=== PATIENT | female | born 1940 | race Caucasian/White ===

== ENCOUNTER 2020-11-03 12:38 | Outpatient (CLI) | payer MEDICARE, OTHER | END 2020-11-03 12:39 | disposition home or self-care (01) | LOC: CSHCT 12:38 | PROVIDERS: ATTEND Internal Medicine Critical Care Medicine | DX: J98.6 Disorders of diaphragm (principal); C34.12 Malignant neoplasm of upper lobe, left bronchus or lung; C38.3 Malignant neoplasm of mediastinum, part unspecified; J98.4 Other disorders of lung | CPT/HCPCS: 71260; 82565 ==

== ENCOUNTER 2021-05-11 13:39 | Outpatient (CLI) | payer MEDICARE, OTHER | END 2021-05-11 13:40 | disposition home or self-care (01) | LOC: CSHMRI 13:39 | PROVIDERS: ATTEND Radiology Radiation Oncology | DX: C34.90 Malignant neoplasm of unspecified part of unspecified bronchus or lung (principal); Z92.21 Personal history of antineoplastic chemotherapy | CPT/HCPCS: 70553 ==

== ENCOUNTER 2021-08-18 10:10 | Outpatient (CLI) | payer MEDICARE, OTHER | END 2021-08-18 10:11 | disposition home or self-care (01) | LOC: CSHMRI 10:10 | PROVIDERS: ATTEND Radiology Radiation Oncology | DX: C34.90 Malignant neoplasm of unspecified part of unspecified bronchus or lung (principal); R90.82 White matter disease, unspecified; Z86.73 Personal history of transient ischemic attack (TIA), and cerebral infarction without residual deficits | CPT/HCPCS: 70553; 82565 ==

== ENCOUNTER 2021-11-10 13:48 | Outpatient (CLI) | payer MEDICARE, OTHER | END 2021-11-10 13:49 | disposition home or self-care (01) | LOC: CSHULT 13:48 | PROVIDERS: ATTEND Student in an Organized Health Care Education/Training Program | DX: R94.4 Abnormal results of kidney function studies (principal); N28.1 Cyst of kidney, acquired; N28.89 Other specified disorders of kidney and ureter | CPT/HCPCS: 76770 ==

== ENCOUNTER 2021-11-22 10:07 | Outpatient (CLI) | payer MEDICARE, OTHER | END 2021-11-22 10:08 | disposition home or self-care (01) | LOC: CSHMRI 10:07 | PROVIDERS: ATTEND Radiology Radiation Oncology | DX: C34.90 Malignant neoplasm of unspecified part of unspecified bronchus or lung (principal); G31.9 Degenerative disease of nervous system, unspecified; I67.82 Cerebral ischemia | CPT/HCPCS: 70553; 82565 ==

== ENCOUNTER 2022-01-12 13:49 | Outpatient (CLI) | payer MEDICARE, OTHER ==
[2022-01-12] MEDS ORDERED: Iopamidol 370 76% 100 ML VIAL ONE (14:39)
== END 2022-01-12 13:50 | disposition home or self-care (01) ==
LOC: CSHCT 13:49
PROVIDERS: ATTEND Internal Medicine Hematology & Oncology
DX: C34.12 Malignant neoplasm of upper lobe, left bronchus or lung (principal); R91.1 Solitary pulmonary nodule; R91.8 Other nonspecific abnormal finding of lung field; J90 Pleural effusion, not elsewhere classified
CPT/HCPCS: 71260; Q9967

== ENCOUNTER 2022-03-19 07:55 | Outpatient (CLI) | payer MEDICARE, OTHER ==
[2022-03-19] MEDS ORDERED: Iopamidol 370 76% 100 ML VIAL ONE (14:44)
== END 2022-03-19 07:56 | disposition home or self-care (01) ==
LOC: CSHCT 07:55
PROVIDERS: ATTEND Specialist
DX: I71.4 Abdominal aortic aneurysm, without rupture (principal); I71.02 Dissection of abdominal aorta; J90 Pleural effusion, not elsewhere classified; N28.1 Cyst of kidney, acquired; K57.90 Diverticulosis of intestine, part unspecified, without perforation or abscess without bleeding; I70.1 Atherosclerosis of renal artery
CPT/HCPCS: 74174; Q9967

== ENCOUNTER 2022-04-14 22:36 | Inpatient (IN) | payer MEDICARE, OTHER ==
[2022-04-14 23:25] LABS: Mean Corpuscular Hemoglobin 30.2 pg (27.0-33.0); Mean Corpuscular Volume 91.6 fl (81.6-98.3); Mean Platelet Volume 9.7 fl (7.4-10.4); Platelet Count 189 10x3/uL (150-450); RBC Distribution Width 16.4 % (11.5-14.5); Red Blood Cell (RBC) Count 2.98 10x6/uL (3.90-5.03); White Blood Cell (WBC) Count 25.9 10x3/uL (3.5-10.5)
[2022-04-14 23:35] LABS: ALT (SGPT) 12 U/L (8-55); AST (SGOT) 20 U/L (5-34); Albumin 3.8 g/dL (3.4-4.8); Alkaline Phosphatase 85 U/L (40-110); Anion Gap 16 mmol/L (10-20); BUN (Urea Nitrogen) 30 mg/dL (9.8-20.1); Bilirubin, Total 0.2 mg/dL (0.2-1.2); Calc. Creatinine Clearance 0 mL/min (70-130); Calcium 8.6 mg/dL (7.8-10.44); Carbon Dioxide 21 mmol/L (23-31); Chloride 95 mmol/L (98-107); Estimated GFR 23; Globulin 3.1 g/dL (2.4-3.5); Glucose 122 mg/dL (83-110); Potassium 4.1 mmol/L (3.5-5.1); Protein, Total 6.9 g/dL (5.8-8.1); Sodium 128 mmol/L (136-145)
[2022-04-14 23:53] LABS: MDiff Complete? YES
[2022-04-14 23:56] LABS: CKMB 3.8 ng/mL (0-6.6)
[2022-04-15 02:40] LABS: Band 5 % (5-11); Lymphocytes 4 % (21-51); Monocytes 5 % (0-10); Neutrophil 86 % (42-75)
[2022-04-15 02:43] LABS: Anisocytosis SLIGHT = 6-15 cells (100X) (0-5/hpf); Hypochromia SLIGHT = 6-15 cells (100X) (0-5/hpf); Macrocytosis SLIGHT = 6-15 cells (100X) (0-5/hpf); Platelet Morphology Comment Appears Adequate
[2022-04-15] MEDS ORDERED: Calcium Carbonate 500 MG ChewTAB PO PRN (03:17)
[2022-04-15] MEDS ORDERED: Acetaminophen 325 MG TAB PO PRN (03:17)
[2022-04-15] MEDS ORDERED: Senokot S 8.6-50 MG TAB PO PRN (03:17)
[2022-04-15] MEDS ORDERED: Guaifenesin DM 100-10/5 ML UDCUP PO PRN (03:17)
[2022-04-15] MEDS ORDERED: Ondansetron PF 4 MG/2 ML Vial IVP PRN (03:17)
[2022-04-15] MEDS ORDERED: HYDROcodone/Acetaminophen 5/325 mg Tablet PO PRN (03:17)
[2022-04-15] MEDS ORDERED: Enoxaparin Sodium 80 MG/0.8 ML SYRINGE ONE (03:19)
[2022-04-15] MEDS ORDERED: Furosemide 40 MG/4 ML VIAL ONE ×2 (03:19→10:25)
[2022-04-15] MEDS ORDERED: Nitroglycerin 2% Ointment 1 INCH/1 GM Packet TOP SCH (03:30)
[2022-04-15] MEDS ORDERED: Piperacillin/Tazobactam 3.375 GM in Sodium Chloride 0.9% 100 ML IVPB SCH (03:45)
[2022-04-15] MEDS ORDERED: methylPREDNISolone Sod Succ/PF 125 MG/2 ML VIAL IVP SCH (03:45)
[2022-04-15] MEDS ORDERED: methylPREDNISolone Sod Succ/PF 125 MG/2 ML VIAL ONE (03:46)
[2022-04-15] MEDS ORDERED: Nitroglycerin 2% Ointment 1 INCH/1 GM Packet ONE (03:46)
[2022-04-15] MEDS ORDERED: Piperacillin/Tazobactam 3.375 GM VIAL ONE ×3 (03:47→20:46)
[2022-04-15 04:05] LABS: SARS-CoV-2 NAA Rapid Test Not Detected (NotDetected)
[2022-04-15 04:32] LABS: Anion Gap 15 mmol/L (10-20); BUN (Urea Nitrogen) 31 mg/dL (9.8-20.1); Calc. Creatinine Clearance 0 mL/min (70-130); Calcium 8.8 mg/dL (7.8-10.44); Carbon Dioxide 22 mmol/L (23-31); Chloride 94 mmol/L (98-107); Estimated GFR 26; Glucose 113 mg/dL (83-110); Potassium 4.1 mmol/L (3.5-5.1); Sodium 127 mmol/L (136-145)
[2022-04-15 04:50] LABS: #Basophils 0.1 10x3/uL (0.0-0.2); #Eosinphils 0.1 10x3/uL (0.0-0.5); #Monocytes 1.4 10x3/uL (0.0-1.1); #Neutrophils 20.1 10x3/uL (1.5-8.4); %Basophils 0.5 % (0.0-2.0); %Eosinophils 0.2 % (0.0-6.0); %Lymphocytes 5.6 % (18.0-47.0); %Monocytes 5.6 % (0.0-10.0); %Neutrophils 78.8 % (40.0-75.0); Hemoglobin 8.8 g/dL (12.0-15.5); Mean Corpuscular HGB CONC 33.1 g/dL (32.0-36.0); Mean Corpuscular Hemoglobin 30.2 pg (27.0-33.0); Mean Corpuscular Volume 91.4 fl (81.6-98.3); Mean Platelet Volume 9.7 fl (7.4-10.4); Platelet Count 196 10x3/uL (150-450); RBC Distribution Width 16.2 % (11.5-14.5); Red Blood Cell (RBC) Count 2.91 10x6/uL (3.90-5.03); White Blood Cell (WBC) Count 25.5 10x3/uL (3.5-10.5)
[2022-04-15 04:59] LABS: CKMB 3.2 ng/mL (0-6.6)
[2022-04-15 06:09] LABS: MDiff Complete? YES
[2022-04-15 06:12] LABS: Eosinophils 1 % (0-10); Lymphocytes 11 % (21-51); Monocytes 11 % (0-10); Neutrophil 77 % (42-75)
[2022-04-15 06:14] LABS: Anisocytosis SLIGHT = 6-15 cells (100X) (0-5/hpf); Hypochromia SLIGHT = 6-15 cells (100X) (0-5/hpf); Microcytosis SLIGHT = 6-15 cells (100X) (0-5/hpf); Platelet Morphology Comment Appears Adequate
[2022-04-15] MEDS: Levothyroxine Sodium 75 MCG TAB PO SCH (06:31)
[2022-04-15] MEDS ORDERED: APREMILAST 30 MG PO SCH (09:00)
[2022-04-15 09:36] LABS: CKMB 3.7 ng/mL (0-6.6)
[2022-04-15] MEDS ORDERED: Clopidogrel Bisulfate 75 MG TAB ONE (10:24)
[2022-04-15] MEDS ORDERED: Aspirin Chewable 81 MG TAB ONE (10:24)
[2022-04-15] MEDS ORDERED: Multivitamin W/ Minerals 1 TAB ONE (10:25)
[2022-04-15] MEDS ORDERED: Famotidine 20 MG TAB ONE (10:26)
[2022-04-15] MEDS: Carvedilol 6.25 MG TAB PO SCH ×2 (10:30→21:23)
[2022-04-15] MEDS: Furosemide 40 MG/4 ML VIAL SLOW IVP SCH (10:30)
[2022-04-15] MEDS: Clopidogrel Bisulfate 75 MG TAB PO SCH (10:30)
[2022-04-15] MEDS: Multivitamin W/ Minerals 1 TAB PO SCH (10:30)
[2022-04-15] MEDS: Famotidine 20 MG TAB PO SCH (10:30)
[2022-04-15] MEDS: Liothyronine Sodium 5 MCG TAB PO SCH (10:30)
[2022-04-15] MEDS: Aspirin 81 mg Enteric Coated Tablet PO SCH (10:30)
[2022-04-15] MEDS ORDERED: Mometasone/Formoterol 200/5 60 PUFF INH ONE (11:19)
[2022-04-15] MEDS: Mometasone/Formoterol 200/5 60 PUFF INH SCH ×2 (11:59→18:40)
[2022-04-15] MEDS: Piperacillin/Tazobactam 3.375 GM in Sodium Chloride 0.9% 100 ML IVPB SCH ×2 (12:54→21:24)
[2022-04-15] MEDS ORDERED: Amlodipine 10 MG TAB ONE (20:42)
[2022-04-15] MEDS ORDERED: Carvedilol 3.125 MG TAB ONE (20:43)
[2022-04-15] MEDS: Amlodipine 10 MG TAB PO SCH (21:23)
[2022-04-15] MEDS: Atorvastatin Calcium 10 MG TAB PO SCH (21:23)
[2022-04-16 01:34] LABS: Bilirubin Neg (Negative); Blood, Urine 25 (Negative); Clarity Clear (Clear); Glucose, Urine (Dipstick) Normal (Negative); Ketone, Urine Negative (Negative); Leukocyte 25 (Negative); Nitrite Negative (Negative); Protein, Urine (Dipstick) Negative (Neg-Trace); Urobilinogen Normal mg/dL (Less than 2)
[2022-04-16 02:09] LABS: Bacteria/HPF None Seen HPF (None Seen); RBC/HPF 0-3 HPF (0-3); Squamous Epithelial 0-3 HPF (0-3)
[2022-04-16] MEDS ORDERED: Enoxaparin Sodium 80 MG/0.8 ML SYRINGE SC SCH (04:00)
[2022-04-16] MEDS: Piperacillin/Tazobactam 3.375 GM in Sodium Chloride 0.9% 100 ML IVPB SCH ×3 (04:36→20:28)
[2022-04-16 04:56] LABS: Hemoglobin 8.5 g/dL (12.0-15.5); Mean Corpuscular HGB CONC 33.7 g/dL (32.0-36.0); Mean Corpuscular Hemoglobin 30.1 pg (27.0-33.0); Mean Corpuscular Volume 89.4 fl (81.6-98.3); Mean Platelet Volume 9.6 fl (7.4-10.4); Platelet Count 244 10x3/uL (150-450); RBC Distribution Width 16.1 % (11.5-14.5); Red Blood Cell (RBC) Count 2.82 10x6/uL (3.90-5.03); White Blood Cell (WBC) Count 27.4 10x3/uL (3.5-10.5)
[2022-04-16 05:14] LABS: ALT (SGPT) 10 U/L (8-55); AST (SGOT) 18 U/L (5-34); Albumin 3.5 g/dL (3.4-4.8); Alkaline Phosphatase 72 U/L (40-110); Anion Gap 13 mmol/L (10-20); BUN (Urea Nitrogen) 29 mg/dL (9.8-20.1); Bilirubin, Total 0.2 mg/dL (0.2-1.2); CK (CPK) 104 U/L (29-168); Calc. Creatinine Clearance 35 mL/min (70-130); Calcium 8.7 mg/dL (7.8-10.44); Carbon Dioxide 24 mmol/L (23-31); Chloride 95 mmol/L (98-107); Estimated GFR 36; Globulin 3.1 g/dL (2.4-3.5); Glucose 136 mg/dL (83-110); Magnesium 1.8 mg/dL (1.6-2.6); Potassium 3.9 mmol/L (3.5-5.1); Protein, Total 6.6 g/dL (5.8-8.1); Sodium 128 mmol/L (136-145)
[2022-04-16] MEDS: Levothyroxine Sodium 75 MCG TAB PO SCH (05:28)
[2022-04-16 05:31] LABS: MDiff Complete? YES
[2022-04-16 05:34] LABS: Band 15 % (5-11); Lymphocytes 3 % (21-51); Metamyelocyte 1 % (0-0); Monocytes 8 % (0-10); Myelocyte 2 % (0-0); Neutrophil 71 % (42-75); Platelet Morphology Comment Appears Adequate
[2022-04-16 05:35] LABS: RBC Morphology Normal
[2022-04-16] MEDS: Clopidogrel Bisulfate 75 MG TAB PO SCH (07:35)
[2022-04-16] MEDS: Multivitamin W/ Minerals 1 TAB PO SCH (07:35)
[2022-04-16] MEDS: Famotidine 20 MG TAB PO SCH (07:35)
[2022-04-16] MEDS: Carvedilol 6.25 MG TAB PO SCH ×2 (07:36→20:29)
[2022-04-16] MEDS: Furosemide 40 MG/4 ML VIAL SLOW IVP SCH ×2 (07:36→20:29)
[2022-04-16] MEDS: Aspirin 81 mg Enteric Coated Tablet PO SCH (07:46)
[2022-04-16] MEDS: Liothyronine Sodium 5 MCG TAB PO SCH (08:36)
[2022-04-16] MEDS ORDERED: Enoxaparin Sodium 30 MG/0.3 ML SYRINGE SC SCH (09:00)
[2022-04-16] MEDS ORDERED: FLU VACC QS2022-23(65YR UP)/PF 240 MCG/0.7 ML SYRINGE IM ONE (09:00)
[2022-04-16] MEDS: Mometasone/Formoterol 200/5 60 PUFF INH SCH ×2 (10:18→19:25)
[2022-04-16] MEDS: Atorvastatin Calcium 10 MG TAB PO SCH (20:29)
[2022-04-16] MEDS: Amlodipine 10 MG TAB PO SCH (20:29)
[2022-04-17 04:28] LABS: Hemoglobin 8.9 g/dL (12.0-15.5); Mean Corpuscular HGB CONC 33.3 g/dL (32.0-36.0); Mean Corpuscular Hemoglobin 29.9 pg (27.0-33.0); Mean Corpuscular Volume 89.6 fl (81.6-98.3); Mean Platelet Volume 9.4 fl (7.4-10.4); Platelet Count 288 10x3/uL (150-450); RBC Distribution Width 16.6 % (11.5-14.5); Red Blood Cell (RBC) Count 2.98 10x6/uL (3.90-5.03); White Blood Cell (WBC) Count 15.2 10x3/uL (3.5-10.5)
[2022-04-17 04:43] LABS: ALT (SGPT) 11 U/L (8-55); AST (SGOT) 16 U/L (5-34); Albumin 3.5 g/dL (3.4-4.8); Alkaline Phosphatase 67 U/L (40-110); Anion Gap 15 mmol/L (10-20); BUN (Urea Nitrogen) 23 mg/dL (9.8-20.1); Bilirubin, Total 0.3 mg/dL (0.2-1.2); Calc. Creatinine Clearance 50 mL/min (70-130); Calcium 8.6 mg/dL (7.8-10.44); Carbon Dioxide 28 mmol/L (23-31); Chloride 96 mmol/L (98-107); Estimated GFR 51; Globulin 3.1 g/dL (2.4-3.5); Glucose 97 mg/dL (83-110); Potassium 3.6 mmol/L (3.5-5.1); Protein, Total 6.6 g/dL (5.8-8.1); Sodium 135 mmol/L (136-145)
[2022-04-17 05:09] LABS: MDiff Complete? YES
[2022-04-17 05:13] LABS: Band 5 % (5-11); Eosinophils 1 % (0-10); Lymphocytes 11 % (21-51); Metamyelocyte 1 % (0-0); Monocytes 6 % (0-10); Neutrophil 75 % (42-75); Nucleated RBC 1 % (0); Reactive Lymphocytes 1 % (0-10)
[2022-04-17 05:14] LABS: Platelet Morphology Comment Appears Adequate; RBC Morphology Normal
[2022-04-17] MEDS: Piperacillin/Tazobactam 3.375 GM in Sodium Chloride 0.9% 100 ML IVPB SCH ×3 (05:28→20:03)
[2022-04-17] MEDS: Levothyroxine Sodium 75 MCG TAB PO SCH (05:28)
[2022-04-17 07:54] LABS: Magnesium 1.6 mg/dL (1.6-2.6)
[2022-04-17] MEDS ORDERED: Magnesium 2 GM/50 ML(in water) 2 GM in Premix Bag 1 BAG IVPB SCH (08:00)
[2022-04-17] MEDS ORDERED: Potassium Chloride 20 MEQ TAB PO SCH (08:00)
[2022-04-17] MEDS: Furosemide 40 MG/4 ML VIAL SLOW IVP SCH ×2 (08:12→20:03)
[2022-04-17] MEDS: Clopidogrel Bisulfate 75 MG TAB PO SCH (08:12)
[2022-04-17] MEDS: Liothyronine Sodium 5 MCG TAB PO SCH (08:13)
[2022-04-17] MEDS: Carvedilol 12.5 MG TAB PO SCH ×2 (08:13→17:06)
[2022-04-17] MEDS: Aspirin 81 mg Enteric Coated Tablet PO SCH (08:13)
[2022-04-17] MEDS: Famotidine 20 MG TAB PO SCH (08:13)
[2022-04-17] MEDS: Multivitamin W/ Minerals 1 TAB PO SCH (08:13)
[2022-04-17] MEDS ORDERED: Lidocaine 1% PF 5 ML VIAL ONE (09:33)
[2022-04-17] MEDS ORDERED: Sodium Bicarbonate 2.5 MEQ/5 ML VIAL ONE (09:33)
[2022-04-17] MEDS: Mometasone/Formoterol 200/5 60 PUFF INH SCH ×2 (10:40→19:05)
[2022-04-17] MEDS ORDERED: Piperacillin/Tazobactam 3.375 GM VIAL ONE ×3 (12:21→20:04)
[2022-04-17] MEDS: Atorvastatin Calcium 10 MG TAB PO SCH (20:03)
[2022-04-17] MEDS: Amlodipine 10 MG TAB PO SCH (20:03)
[2022-04-17] MEDS: Enoxaparin Sodium 40 MG/0.4 ML SYRINGE SC SCH (20:03)
[2022-04-17] MEDS ORDERED: Sodium Chloride 0.9% 100 ML ONE (20:04)
[2022-04-17] MEDS ORDERED: hydrALAZINE 20 MG/ML VIAL SLOW IVP SCH (21:00)
[2022-04-18 03:30] LABS: Hemoglobin 10.6 g/dL (12.0-15.5); Mean Corpuscular HGB CONC 33.5 g/dL (32.0-36.0); Mean Corpuscular Hemoglobin 30.1 pg (27.0-33.0); Mean Corpuscular Volume 89.8 fl (81.6-98.3); Platelet Count 373 10x3/uL (150-450); RBC Distribution Width 17.5 % (11.5-14.5); Red Blood Cell (RBC) Count 3.52 10x6/uL (3.90-5.03); White Blood Cell (WBC) Count 23.1 10x3/uL (3.5-10.5)
[2022-04-18 03:49] LABS: ALT (SGPT) 11 U/L (8-55); AST (SGOT) 14 U/L (5-34); Albumin 3.9 g/dL (3.4-4.8); Alkaline Phosphatase 72 U/L (40-110); Anion Gap 13 mmol/L (10-20); BUN (Urea Nitrogen) 17 mg/dL (9.8-20.1); Bilirubin, Total 0.4 mg/dL (0.2-1.2); Calc. Creatinine Clearance 55 mL/min (70-130); Calcium 9.5 mg/dL (7.8-10.44); Carbon Dioxide 35 mmol/L (23-31); Chloride 91 mmol/L (98-107); Estimated GFR 58; Globulin 3.3 g/dL (2.4-3.5); Glucose 129 mg/dL (83-110); MDiff Complete? YES; Magnesium 1.6 mg/dL (1.6-2.6); Potassium 3.4 mmol/L (3.5-5.1); Protein, Total 7.2 g/dL (5.8-8.1); Sodium 136 mmol/L (136-145)
[2022-04-18 03:52] LABS: Band 8 % (5-11); Lymphocytes 9 % (21-51); Metamyelocyte 1 % (0-0); Monocytes 7 % (0-10); Myelocyte 3 % (0-0); Neutrophil 71 % (42-75); Nucleated RBC 1 % (0); Reactive Lymphocytes 1 % (0-10)
[2022-04-18 03:53] LABS: Platelet Morphology Comment Appears Adequate; RBC Morphology Normal
[2022-04-18] MEDS ORDERED: Magnesium 2 GM/50 ML(in water) 2 GM in Premix Bag 1 BAG IVPB SCH ×2 (04:30→08:00)
[2022-04-18] MEDS ORDERED: Potassium Phosphate 30 MMOL in Sodium Chloride 0.9% 250 ML 250 ML IVPB SCH (04:45)
[2022-04-18] MEDS: Piperacillin/Tazobactam 3.375 GM in Sodium Chloride 0.9% 100 ML IVPB SCH ×3 (04:47→19:49)
[2022-04-18] MEDS: Levothyroxine Sodium 75 MCG TAB PO SCH (05:11)
[2022-04-18] MEDS: Mometasone/Formoterol 200/5 60 PUFF INH SCH ×2 (07:40→19:05)
[2022-04-18] MEDS: Liothyronine Sodium 5 MCG TAB PO SCH (08:12)
[2022-04-18] MEDS: Aspirin 81 mg Enteric Coated Tablet PO SCH (08:12)
[2022-04-18] MEDS: Clopidogrel Bisulfate 75 MG TAB PO SCH (08:12)
[2022-04-18] MEDS: Famotidine 20 MG TAB PO SCH (08:12)
[2022-04-18] MEDS: Multivitamin W/ Minerals 1 TAB PO SCH (08:12)
[2022-04-18 08:14] LABS: #Basophils 0.2 10x3/uL (0.0-0.2); #Eosinphils 0.1 10x3/uL (0.0-0.5); #Monocytes 2.8 10x3/uL (0.0-1.1); #Neutrophils 13.7 10x3/uL (1.5-8.4); %Basophils 0.8 % (0.0-2.0); %Eosinophils 0.3 % (0.0-6.0); %Lymphocytes 8.1 % (18.0-47.0); %Monocytes 14.3 % (0.0-10.0); Hemoglobin 9.9 g/dL (12.0-15.5); Mean Corpuscular HGB CONC 33.8 g/dL (32.0-36.0); Mean Corpuscular Hemoglobin 30.2 pg (27.0-33.0); Mean Corpuscular Volume 89.3 fl (81.6-98.3); Mean Platelet Volume 9.4 fl (7.4-10.4); Platelet Count 366 10x3/uL (150-450); RBC Distribution Width 17.2 % (11.5-14.5); Red Blood Cell (RBC) Count 3.28 10x6/uL (3.90-5.03); White Blood Cell (WBC) Count 19.3 10x3/uL (3.5-10.5)
[2022-04-18] MEDS: Carvedilol 25 MG TAB PO SCH ×2 (08:14→16:03)
[2022-04-18 08:15] LABS: Manual Diff?? YES
[2022-04-18 08:30] LABS: Band 7 % (5-11); Eosinophils 1 % (0-10); Lymphocytes 7 % (21-51); Monocytes 12 % (0-10); Myelocyte 2 % (0-0); Neutrophil 64 % (42-75); Nucleated RBC 1 % (0); Reactive Lymphocytes 4 % (0-10)
[2022-04-18] MEDS ORDERED: Furosemide 40 MG TAB PO SCH (08:30)
[2022-04-18 08:31] LABS: Anisocytosis SLIGHT = 6-15 cells (100X) (0-5/hpf); Platelet Morphology Comment Appears Adequate
[2022-04-18 08:32] LABS: Hypochromia SLIGHT = 6-15 cells (100X) (0-5/hpf); Macrocytosis SLIGHT = 6-15 cells (100X) (0-5/hpf); Microcytosis SLIGHT = 6-15 cells (100X) (0-5/hpf); Polychromasia SLIGHT = 2-3 cells (100X) (0-2/hpf); Target Cells SLIGHT = 2-5 cells (100X) (0-1/hpf)
[2022-04-18] MEDS: Amlodipine 10 MG TAB PO SCH (19:48)
[2022-04-18] MEDS: Atorvastatin Calcium 10 MG TAB PO SCH (19:48)
[2022-04-18] MEDS: Enoxaparin Sodium 40 MG/0.4 ML SYRINGE SC SCH (19:49)
[2022-04-19 04:52] LABS: Hemoglobin 9.8 g/dL (12.0-15.5); Mean Corpuscular HGB CONC 34.3 g/dL (32.0-36.0); Mean Corpuscular Hemoglobin 30.5 pg (27.0-33.0); Mean Corpuscular Volume 89.1 fl (81.6-98.3); Mean Platelet Volume 9.2 fl (7.4-10.4); Platelet Count 338 10x3/uL (150-450); RBC Distribution Width 17.2 % (11.5-14.5); Red Blood Cell (RBC) Count 3.21 10x6/uL (3.90-5.03); White Blood Cell (WBC) Count 15.6 10x3/uL (3.5-10.5)
[2022-04-19 05:01] LABS: ALT (SGPT) 11 U/L (8-55); AST (SGOT) 17 U/L (5-34); Albumin 3.5 g/dL (3.4-4.8); Alkaline Phosphatase 61 U/L (40-110); Anion Gap 12 mmol/L (10-20); BUN (Urea Nitrogen) 15 mg/dL (9.8-20.1); Bilirubin, Total 0.5 mg/dL (0.2-1.2); Calc. Creatinine Clearance 61 mL/min (70-130); Calcium 8.8 mg/dL (7.8-10.44); Carbon Dioxide 32 mmol/L (23-31); Chloride 90 mmol/L (98-107); Estimated GFR 67; Globulin 3.1 g/dL (2.4-3.5); Glucose 114 mg/dL (83-110); Potassium 3.4 mmol/L (3.5-5.1); Protein, Total 6.6 g/dL (5.8-8.1); Sodium 131 mmol/L (136-145)
[2022-04-19] MEDS: Piperacillin/Tazobactam 3.375 GM in Sodium Chloride 0.9% 100 ML IVPB SCH ×3 (05:35→22:06)
[2022-04-19] MEDS: Levothyroxine Sodium 75 MCG TAB PO SCH (05:35)
[2022-04-19 06:04] LABS: MDiff Complete? YES
[2022-04-19 06:40] LABS: Band 5 % (5-11); Lymphocytes 8 % (21-51); Metamyelocyte 2 % (0-0); Monocytes 20 % (0-10); Neutrophil 65 % (42-75)
[2022-04-19 06:41] LABS: Anisocytosis SLIGHT = 6-15 cells (100X) (0-5/hpf); Hypochromia SLIGHT = 6-15 cells (100X) (0-5/hpf); Macrocytosis SLIGHT = 6-15 cells (100X) (0-5/hpf); Microcytosis SLIGHT = 6-15 cells (100X) (0-5/hpf); Platelet Morphology Comment Appears Adequate
[2022-04-19] MEDS ORDERED: Furosemide 40 MG TAB PO SCH (07:30)
[2022-04-19] MEDS: Mometasone/Formoterol 200/5 60 PUFF INH SCH ×2 (08:10→20:45)
[2022-04-19] MEDS: Clopidogrel Bisulfate 75 MG TAB PO SCH (08:10)
[2022-04-19] MEDS: Multivitamin W/ Minerals 1 TAB PO SCH (08:10)
[2022-04-19] MEDS: Aspirin 81 mg Enteric Coated Tablet PO SCH (08:10)
[2022-04-19] MEDS: Liothyronine Sodium 5 MCG TAB PO SCH (08:10)
[2022-04-19] MEDS: Potassium Chloride 20 MEQ TAB PO SCH (08:10)
[2022-04-19] MEDS: Famotidine 20 MG TAB PO SCH (08:10)
[2022-04-19] MEDS: Carvedilol 25 MG TAB PO SCH ×2 (08:10→17:20)
[2022-04-19] MEDS: Furosemide 40 MG/4 ML VIAL SLOW IVP SCH (08:11)
[2022-04-19] MEDS ORDERED: Lisinopril 5 MG TAB PO SCH (09:00)
[2022-04-19] MEDS ORDERED: Electrolyte Replacement Protocol 1 EACH FS SCH (14:15)
[2022-04-19] MEDS ORDERED: Magnesium 2 GM/50 ML(in water) 2 GM in Premix Bag 1 BAG IVPB SCH (15:00)
[2022-04-19] MEDS ORDERED: Potassium Chloride 20 MEQ TAB PO SCH (15:00)
[2022-04-19] MEDS: Enoxaparin Sodium 40 MG/0.4 ML SYRINGE SC SCH (22:06)
[2022-04-19] MEDS: Atorvastatin Calcium 10 MG TAB PO SCH (22:07)
[2022-04-19] MEDS: Amlodipine 10 MG TAB PO SCH (22:07)
[2022-04-20 05:27] LABS: Hemoglobin 9.1 g/dL (12.0-15.5); Mean Corpuscular HGB CONC 33.2 g/dL (32.0-36.0); Mean Corpuscular Volume 90.4 fl (81.6-98.3); Mean Platelet Volume 8.9 fl (7.4-10.4); Platelet Count 320 10x3/uL (150-450); RBC Distribution Width 17.3 % (11.5-14.5); Red Blood Cell (RBC) Count 3.03 10x6/uL (3.90-5.03); White Blood Cell (WBC) Count 13.7 10x3/uL (3.5-10.5)
[2022-04-20 05:33] LABS: Phosphorus 3.1 mg/dL (2.3-4.7)
[2022-04-20 05:35] LABS: ALT (SGPT) 15 U/L (8-55); AST (SGOT) 16 U/L (5-34); Albumin 3.5 g/dL (3.4-4.8); Alkaline Phosphatase 59 U/L (40-110); Anion Gap 14 mmol/L (10-20); BUN (Urea Nitrogen) 14 mg/dL (9.8-20.1); Bilirubin, Total 0.4 mg/dL (0.2-1.2); Calc. Creatinine Clearance 60 mL/min (70-130); Carbon Dioxide 31 mmol/L (23-31); Chloride 96 mmol/L (98-107); Estimated GFR 68; Glucose 114 mg/dL (83-110); Magnesium 2.3 mg/dL (1.6-2.6); Potassium 4.5 mmol/L (3.5-5.1); Protein, Total 6.5 g/dL (5.8-8.1); Sodium 136 mmol/L (136-145)
[2022-04-20 06:14] LABS: MDiff Complete? YES
[2022-04-20 06:19] LABS: Eosinophils 2 % (0-10); Lymphocytes 10 % (21-51); Monocytes 17 % (0-10); Neutrophil 71 % (42-75)
[2022-04-20 06:20] LABS: Anisocytosis SLIGHT = 6-15 cells (100X) (0-5/hpf); Hypochromia SLIGHT = 6-15 cells (100X) (0-5/hpf); Macrocytosis SLIGHT = 6-15 cells (100X) (0-5/hpf); Microcytosis SLIGHT = 6-15 cells (100X) (0-5/hpf)
[2022-04-20] MEDS: Piperacillin/Tazobactam 3.375 GM in Sodium Chloride 0.9% 100 ML IVPB SCH ×3 (06:34→21:24)
[2022-04-20] MEDS: Levothyroxine Sodium 50 MCG TAB PO SCH (06:34)
[2022-04-20] MEDS: Levothyroxine Sodium 75 MCG TAB PO SCH (06:34)
[2022-04-20] MEDS: Multivitamin W/ Minerals 1 TAB PO SCH (08:16)
[2022-04-20] MEDS: Liothyronine Sodium 5 MCG TAB PO SCH (08:16)
[2022-04-20] MEDS: Famotidine 20 MG TAB PO SCH (08:16)
[2022-04-20] MEDS: Aspirin 81 mg Enteric Coated Tablet PO SCH (08:16)
[2022-04-20] MEDS: Clopidogrel Bisulfate 75 MG TAB PO SCH (08:16)
[2022-04-20] MEDS: Carvedilol 25 MG TAB PO SCH ×2 (08:17→17:55)
[2022-04-20] MEDS: Furosemide 40 MG/4 ML VIAL SLOW IVP SCH (08:17)
[2022-04-20] MEDS: Potassium Chloride 20 MEQ TAB PO SCH (08:17)
[2022-04-20] MEDS ORDERED: Lisinopril 10 MG TAB PO SCH (09:00)
[2022-04-20] MEDS: Mometasone/Formoterol 200/5 60 PUFF INH SCH ×2 (11:25→19:16)
[2022-04-20] MEDS: Amlodipine 10 MG TAB PO SCH (21:22)
[2022-04-20] MEDS: Atorvastatin Calcium 10 MG TAB PO SCH (21:22)
[2022-04-20] MEDS: Enoxaparin Sodium 40 MG/0.4 ML SYRINGE SC SCH (21:23)
[2022-04-21] MEDS: hydrALAZINE 20 MG/ML VIAL SLOW IVP PRN ×2 (01:46→17:20)
[2022-04-21 04:29] LABS: Anion Gap 13 mmol/L (10-20); BUN (Urea Nitrogen) 20 mg/dL (9.8-20.1); Calc. Creatinine Clearance 51 mL/min (70-130); Calcium 9.2 mg/dL (7.8-10.44); Carbon Dioxide 27 mmol/L (23-31); Chloride 97 mmol/L (98-107); Estimated GFR 56; Glucose 115 mg/dL (83-110); Potassium 4.1 mmol/L (3.5-5.1); Sodium 133 mmol/L (136-145)
[2022-04-21 04:35] LABS: Hemoglobin 9.8 g/dL (12.0-15.5); Mean Corpuscular HGB CONC 33.4 g/dL (32.0-36.0); Mean Corpuscular Hemoglobin 30.2 pg (27.0-33.0); Mean Corpuscular Volume 90.2 fl (81.6-98.3); Platelet Count 308 10x3/uL (150-450); RBC Distribution Width 17.3 % (11.5-14.5); Red Blood Cell (RBC) Count 3.25 10x6/uL (3.90-5.03); White Blood Cell (WBC) Count 12.5 10x3/uL (3.5-10.5)
[2022-04-21] MEDS: Piperacillin/Tazobactam 3.375 GM in Sodium Chloride 0.9% 100 ML IVPB SCH ×3 (04:39→22:00)
[2022-04-21] MEDS ORDERED: Magnesium 2 GM/50 ML(in water) 2 GM in Premix Bag 1 BAG IVPB SCH (05:00)
[2022-04-21] MEDS: Levothyroxine Sodium 50 MCG TAB PO SCH (05:06)
[2022-04-21 05:37] LABS: MDiff Complete? YES
[2022-04-21 05:40] LABS: Eosinophils 2 % (0-10); Lymphocytes 10 % (21-51); Monocytes 14 % (0-10); Neutrophil 73 % (42-75)
[2022-04-21 05:41] LABS: Platelet Morphology Comment Appears Adequate
[2022-04-21 05:42] LABS: Anisocytosis SLIGHT = 6-15 cells (100X) (0-5/hpf); Macrocytosis SLIGHT = 6-15 cells (100X) (0-5/hpf); Microcytosis SLIGHT = 6-15 cells (100X) (0-5/hpf)
[2022-04-21] MEDS: Mometasone/Formoterol 200/5 60 PUFF INH SCH ×2 (07:51→21:25)
[2022-04-21] MEDS: Multivitamin W/ Minerals 1 TAB PO SCH (09:01)
[2022-04-21] MEDS: Lisinopril 10 MG TAB PO SCH ×2 (09:01→22:00)
[2022-04-21] MEDS: Clopidogrel Bisulfate 75 MG TAB PO SCH (09:01)
[2022-04-21] MEDS: Potassium Chloride 20 MEQ TAB PO SCH (09:02)
[2022-04-21] MEDS: Famotidine 20 MG TAB PO SCH (09:02)
[2022-04-21] MEDS: Carvedilol 25 MG TAB PO SCH ×2 (09:02→15:58)
[2022-04-21] MEDS: Aspirin 81 mg Enteric Coated Tablet PO SCH (09:02)
[2022-04-21] MEDS: Liothyronine Sodium 5 MCG TAB PO SCH (09:02)
[2022-04-21] MEDS: Atorvastatin Calcium 10 MG TAB PO SCH (22:00)
[2022-04-21] MEDS: Amlodipine 10 MG TAB PO SCH (22:00)
[2022-04-21] MEDS: Enoxaparin Sodium 40 MG/0.4 ML SYRINGE SC SCH (22:00)
[2022-04-22] MEDS: Piperacillin/Tazobactam 3.375 GM in Sodium Chloride 0.9% 100 ML IVPB SCH ×2 (05:52→13:39)
[2022-04-22] MEDS: Levothyroxine Sodium 50 MCG TAB PO SCH (05:54)
[2022-04-22 06:47] LABS: Magnesium 2.2 mg/dL (1.6-2.6)
[2022-04-22 06:54] LABS: Hemoglobin 9.2 g/dL (12.0-15.5); Mean Corpuscular HGB CONC 33.2 g/dL (32.0-36.0); Mean Corpuscular Hemoglobin 30.1 pg (27.0-33.0); Mean Corpuscular Volume 90.5 fl (81.6-98.3); Mean Platelet Volume 9.3 fl (7.4-10.4); Platelet Count 273 10x3/uL (150-450); RBC Distribution Width 17.7 % (11.5-14.5); Red Blood Cell (RBC) Count 3.06 10x6/uL (3.90-5.03); White Blood Cell (WBC) Count 9.1 10x3/uL (3.5-10.5)
[2022-04-22] MEDS ORDERED: Furosemide 40 MG TAB PO SCH (07:30)
[2022-04-22] MEDS: Carvedilol 25 MG TAB PO SCH ×2 (08:09→16:19)
[2022-04-22] MEDS: Liothyronine Sodium 5 MCG TAB PO SCH (08:09)
[2022-04-22] MEDS: Multivitamin W/ Minerals 1 TAB PO SCH (08:10)
[2022-04-22] MEDS: Aspirin 81 mg Enteric Coated Tablet PO SCH (08:10)
[2022-04-22] MEDS: Famotidine 20 MG TAB PO SCH (08:10)
[2022-04-22] MEDS: Potassium Chloride 20 MEQ TAB PO SCH (08:10)
[2022-04-22] MEDS: Lisinopril 10 MG TAB PO SCH (08:10)
[2022-04-22] MEDS: Clopidogrel Bisulfate 75 MG TAB PO SCH (08:11)
[2022-04-22 09:05] LABS: MDiff Complete? YES
[2022-04-22 09:11] LABS: Promyelocytes 1 % (0-0)
[2022-04-22] MEDS ORDERED: Lisinopril 10 MG TAB PO SCH (09:15)
[2022-04-22 09:19] LABS: Band 1 % (5-11); Eosinophils 1 % (0-10); Lymphocytes 10 % (21-51); Monocytes 22 % (0-10); Neutrophil 66 % (42-75)
[2022-04-22 09:20] LABS: Platelet Morphology Comment Appears Adequate
[2022-04-22] MEDS: Mometasone/Formoterol 200/5 60 PUFF INH SCH ×2 (09:48→20:00)
[2022-04-22] MEDS ORDERED: Furosemide 20 MG/2 ML VIAL SLOW IVP SCH (13:00)
[2022-04-22] MEDS: hydrALAZINE 25 MG TAB PO SCH ×2 (16:19→22:16)
[2022-04-22] MEDS: Amlodipine 10 MG TAB PO SCH (22:16)
[2022-04-22] MEDS: Atorvastatin Calcium 10 MG TAB PO SCH (22:16)
[2022-04-22] MEDS: Enoxaparin Sodium 40 MG/0.4 ML SYRINGE SC SCH (22:16)
[2022-04-23] MEDS: Levothyroxine Sodium 50 MCG TAB PO SCH (05:32)
[2022-04-23 05:34] LABS: Mean Corpuscular HGB CONC 32.7 g/dL (32.0-36.0); Mean Corpuscular Hemoglobin 30.1 pg (27.0-33.0); Mean Platelet Volume 9.7 fl (7.4-10.4); Platelet Count 234 10x3/uL (150-450); RBC Distribution Width 17.7 % (11.5-14.5); Red Blood Cell (RBC) Count 2.99 10x6/uL (3.90-5.03); White Blood Cell (WBC) Count 7.3 10x3/uL (3.5-10.5)
[2022-04-23] MEDS: Mometasone/Formoterol 200/5 60 PUFF INH SCH ×2 (06:40→20:35)
[2022-04-23 06:54] LABS: Platelet Morphology Comment Appears Adequate
[2022-04-23 06:55] LABS: MDiff Complete? YES
[2022-04-23 06:58] LABS: Band 3 % (5-11); Lymphocytes 20 % (21-51); Monocytes 29 % (0-10); Neutrophil 46 % (42-75)
[2022-04-23] MEDS ORDERED: Moisturizing Cream (Eucerin) 113 GM JAR TOP PRN (07:40)
[2022-04-23] MEDS ORDERED: GUAIFENESIN SF SOLN 200 MG/10 ML UDCUP PO PRN (07:40)
[2022-04-23] MEDS ORDERED: Benzonatate 100 MG CAP PO PRN (07:40)
[2022-04-23] MEDS ORDERED: Artificial Tear Sol 15 ML BOT EA EYE PRN (07:40)
[2022-04-23] MEDS ORDERED: Cepastat Lozenges 1 LOZ PO PRN (07:40)
[2022-04-23 07:56] LABS: Anion Gap 14 mmol/L (10-20); BUN (Urea Nitrogen) 27 mg/dL (9.8-20.1); Calc. Creatinine Clearance 51 mL/min (70-130); Calcium 8.8 mg/dL (7.8-10.44); Carbon Dioxide 24 mmol/L (23-31); Chloride 101 mmol/L (98-107); Estimated GFR 56; Glucose 104 mg/dL (83-110); Potassium 4.1 mmol/L (3.5-5.1); Sodium 135 mmol/L (136-145)
[2022-04-23 08:41] LABS: Hemoglobin 9.4 g/dL (12.0-15.5); Mean Corpuscular HGB CONC 32.8 g/dL (32.0-36.0); Mean Corpuscular Volume 91.7 fl (81.6-98.3); Mean Platelet Volume 9.2 fl (7.4-10.4); Platelet Count 225 10x3/uL (150-450); RBC Distribution Width 18.1 % (11.5-14.5); Red Blood Cell (RBC) Count 3.13 10x6/uL (3.90-5.03); White Blood Cell (WBC) Count 6.8 10x3/uL (3.5-10.5)
[2022-04-23 08:53] LABS: MDiff Complete? YES
[2022-04-23 08:59] LABS: ALT (SGPT) 23 U/L (8-55); AST (SGOT) 25 U/L (5-34); Albumin 3.4 g/dL (3.4-4.8); Alkaline Phosphatase 56 U/L (40-110); Anion Gap 15 mmol/L (10-20); BUN (Urea Nitrogen) 26 mg/dL (9.8-20.1); Bilirubin, Total 0.3 mg/dL (0.2-1.2); Calc. Creatinine Clearance 51 mL/min (70-130); Calcium 8.8 mg/dL (7.8-10.44); Carbon Dioxide 23 mmol/L (23-31); Chloride 103 mmol/L (98-107); Cholesterol 109 mg/dl (< 200 Desired); Estimated GFR 56; Globulin 3.3 g/dL (2.4-3.5); Glucose 104 mg/dL (83-110); Potassium 4.2 mmol/L (3.5-5.1); Protein, Total 6.7 g/dL (5.8-8.1); Sodium 137 mmol/L (136-145)
[2022-04-23 09:10] LABS: Band 2 % (5-11); Lymphocytes 23 % (21-51); Monocytes 17 % (0-10); Neutrophil 57 % (42-75)
[2022-04-23 09:11] LABS: Platelet Morphology Comment Appears Adequate
[2022-04-23 09:16] LABS: Anisocytosis SLIGHT = 6-15 cells (100X) (0-5/hpf)
[2022-04-23] MEDS: Multivitamin W/ Minerals 1 TAB PO SCH (10:18)
[2022-04-23] MEDS: hydrALAZINE 25 MG TAB PO SCH ×3 (10:18→20:59)
[2022-04-23] MEDS: Potassium Chloride 20 MEQ TAB PO SCH (10:18)
[2022-04-23] MEDS: Aspirin 81 mg Enteric Coated Tablet PO SCH (10:19)
[2022-04-23] MEDS: Carvedilol 25 MG TAB PO SCH ×2 (10:19→17:20)
[2022-04-23] MEDS: Famotidine 20 MG TAB PO SCH (10:19)
[2022-04-23] MEDS: Liothyronine Sodium 5 MCG TAB PO SCH (10:20)
[2022-04-23] MEDS: Lisinopril 20 MG TAB PO SCH (10:20)
[2022-04-23] MEDS: Clopidogrel Bisulfate 75 MG TAB PO SCH (10:20)
[2022-04-23] MEDS: Furosemide 40 MG/4 ML VIAL SLOW IVP SCH (10:21)
[2022-04-23] MEDS: Magnesium 2 GM/50 ML(in water) 2 GM in Premix Bag 1 BAG IVPB SCH ×2 (17:20→19:31)
[2022-04-23] MEDS ORDERED: Magnesium 2 GM/50 ML(in water) 2 GM in Premix Bag 1 BAG IVPB SCH (17:45)
[2022-04-23] MEDS: Amlodipine 10 MG TAB PO SCH (20:58)
[2022-04-23] MEDS: Enoxaparin Sodium 40 MG/0.4 ML SYRINGE SC SCH (20:58)
[2022-04-23] MEDS: Atorvastatin Calcium 10 MG TAB PO SCH (20:58)
[2022-04-24 05:04] VITALS: BMI 27.5
[2022-04-24 05:59] LABS: Magnesium 2.1 mg/dL (1.6-2.6)
[2022-04-24] MEDS: Levothyroxine Sodium 50 MCG TAB PO SCH (06:31)
[2022-04-24] MEDS: Mometasone/Formoterol 200/5 60 PUFF INH SCH (07:05)
[2022-04-24 08:51] LABS: Hemoglobin 9.5 g/dL (12.0-15.5); Mean Corpuscular HGB CONC 33.1 g/dL (32.0-36.0); Mean Corpuscular Hemoglobin 30.5 pg (27.0-33.0); Mean Corpuscular Volume 92.3 fl (81.6-98.3); Mean Platelet Volume 9.5 fl (7.4-10.4); Platelet Count 215 10x3/uL (150-450); RBC Distribution Width 17.6 % (11.5-14.5); Red Blood Cell (RBC) Count 3.11 10x6/uL (3.90-5.03); White Blood Cell (WBC) Count 5.6 10x3/uL (3.5-10.5)
[2022-04-24 08:52] LABS: MDiff Complete? YES
[2022-04-24 09:40] LABS: Anion Gap 13 mmol/L (10-20); BUN (Urea Nitrogen) 19 mg/dL (9.8-20.1); Calc. Creatinine Clearance 65 mL/min (70-130); Calcium 8.8 mg/dL (7.8-10.44); Carbon Dioxide 24 mmol/L (23-31); Chloride 99 mmol/L (98-107); Estimated GFR 78; Glucose 103 mg/dL (83-110); Potassium 4.1 mmol/L (3.5-5.1); Sodium 132 mmol/L (136-145)
[2022-04-24 09:49] LABS: Band 1 % (5-11); Eosinophils 2 % (0-10); Lymphocytes 25 % (21-51); Monocytes 26 % (0-10); Neutrophil 44 % (42-75); Platelet Morphology Comment Appears Adequate
[2022-04-24 09:51] LABS: Anisocytosis SLIGHT = 6-15 cells (100X) (0-5/hpf)
[2022-04-24] MEDS: Potassium Chloride 20 MEQ TAB PO SCH (11:33)
[2022-04-24] MEDS: hydrALAZINE 25 MG TAB PO SCH ×2 (11:34→16:35)
[2022-04-24] MEDS: Liothyronine Sodium 5 MCG TAB PO SCH (11:34)
[2022-04-24] MEDS: Multivitamin W/ Minerals 1 TAB PO SCH (11:34)
[2022-04-24] MEDS: Famotidine 20 MG TAB PO SCH (11:35)
[2022-04-24] MEDS: Clopidogrel Bisulfate 75 MG TAB PO SCH (11:35)
[2022-04-24] MEDS: Aspirin 81 mg Enteric Coated Tablet PO SCH (11:35)
[2022-04-24] MEDS: Carvedilol 25 MG TAB PO SCH ×2 (11:35→16:35)
[2022-04-24] MEDS: Lisinopril 20 MG TAB PO SCH (11:35)
[2022-04-24] MEDS: Furosemide 40 MG/4 ML VIAL SLOW IVP SCH (11:36)
[2022-04-24 15:28] VITALS: BP 131/70; TEMP 97.9
== END 2022-04-24 17:45 | DRG 193 ==
LOC: CSHERS 22:36 → UNDOADMIN 04-15 01:14 → CSHERHOLD 04-15 01:14 → CSHIMCU 04-15 22:51 → CSHTELE 04-19 15:38
PROVIDERS: ADMIT Student in an Organized Health Care Education/Training Program; ATTEND Family Medicine
DX: J18.9 Pneumonia, unspecified organism (principal); I50.33 Acute on chronic diastolic (congestive) heart failure; J96.01 Acute respiratory failure with hypoxia; C34.90 Malignant neoplasm of unspecified part of unspecified bronchus or lung; N17.9 Acute kidney failure, unspecified; I13.0 Hypertensive heart and chronic kidney disease with heart failure and stage 1 through stage 4 chronic kidney disease, or unspecified chronic kidney disease; R65.10 Systemic inflammatory response syndrome (SIRS) of non-infectious origin without acute organ dysfunction; E87.1 Hypo-osmolality and hyponatremia; J44.0 Chronic obstructive pulmonary disease with (acute) lower respiratory infection; E78.5 Hyperlipidemia, unspecified; N18.9 Chronic kidney disease, unspecified; E87.6 Hypokalemia; E83.42 Hypomagnesemia; R77.8 Other specified abnormalities of plasma proteins; I71.40 Abdominal aortic aneurysm, without rupture, unspecified; E03.9 Hypothyroidism, unspecified; Z87.891 Personal history of nicotine dependence; Z86.73 Personal history of transient ischemic attack (TIA), and cerebral infarction without residual deficits; Z90.49 Acquired absence of other specified parts of digestive tract; Z90.710 Acquired absence of both cervix and uterus; Z79.899 Other long term (current) drug therapy; Z88.6 Allergy status to analgesic agent
CPT/HCPCS: 36415; 71045; 71046; 71250; 76770; 76999; 78451; 80048; 80053; 81001; 82465; 82550; 82553; 83615; 83735; 83880; 84100; 84145; 84484; 85025; 87811; 93005; 93010; 93306; 93970; 94664; 94760; 96372; 96374; A9540; J0360; J1650; J1940; J2543; J2930; J3475; J3490; J7050; J7620; U0002

== ENCOUNTER 2022-10-23 08:03 | Outpatient (CLI) | payer MEDICARE, OTHER | END 2022-10-23 08:04 | disposition home or self-care (01) | LOC: CSHULT 08:03 | PROVIDERS: ATTEND Student in an Organized Health Care Education/Training Program | DX: R22.2 Localized swelling, mass and lump, trunk (principal); T85.898A Other specified complication of other internal prosthetic devices, implants and grafts, initial encounter ==